=== PATIENT | male | born 1980 | race Caucasian/White ===

== ENCOUNTER 2016-09-02 13:35 | Emergency (ER) | payer MEDICARE, OTHER ==
[2016-09-02 15:55] LABS: BASOPHIL 0.3 % (0-2); CREATININE 0.8 mg/dL (0.7-1.2); EOSINOPHIL 2.7 % (0-5); HCT 40.3 % (42.0-52.0); HGB 13.5 g/dl (13.2-18.0); LYMPHOCYTE 22.6 % (15-48); MCH 31.5 pg (25.0-31.0); MCHC 33.5 g/dL (32.0-36.0); MCV 94.2 fL (78.0-100.0); MONOCYTE 5.6 % (0-12); MPV 11.7 fL (6.0-9.5); NEUTROPHIL 68.8 % (41-80); PLT 186 K/uL (150-400); POTASSIUM 4.2 mmol/L (3.5-5.1); RBC 4.28 M/uL (4.70-6.00); RDW 15.3 % (11.5-14.0)
[2016-09-02 16:18] LABS: BILIRUBIN NEGATIVE (NEGATIVE); BLOOD NEGATIVE Ery/uL (NEGATIVE); CLARITY CLEAR (CLEAR); COLOR YELLOW (YELLOW); GLUCOSE (U) NORMAL (NORMAL); KETONE (U) NEGATIVE (NEGATIVE); LEUKOCYTES NEGATIVE Leu/uL (NEGATIVE); NITRITE NEGATIVE (NEGATIVE); PROTEIN NEGATIVE (NEGATIVE); SPECIFIC GRAVITY 1.025 (1.001-1.030); UROBILINOGEN 0.2 mg/dL (0.2-1.0); pH 6.5 (5.0-9.0)
[2016-09-02 16:31] LABS: BENZODIAZEPINES NEGATIVE (NEGATIVE)
[2016-09-02 16:32] LABS: AMPHETAMINES NEGATIVE (NEGATIVE); BARBITURATES NEGATIVE (NEGATIVE); COCAINE NEGATIVE (NEGATIVE); MARIJUANA (THC) NEGATIVE (NEGATIVE); METHADONE NEGATIVE (NEGATIVE); TRICYCLIC ANTIDEPRESSANT NEGATIVE (NEGATIVE)
== END 2016-09-02 17:20 | disposition home or self-care (01) ==
LOC: FER 13:35
PROVIDERS: Emergency Medicine
DX: R55 Syncope and collapse (principal); F17.210 Nicotine dependence, cigarettes, uncomplicated; Z88.0 Allergy status to penicillin
CPT/HCPCS: 36415; 80048; 80305; 81003; 84484; 85025; 93005; G0480